=== PATIENT | female | born 1970 | race American Indian/Alaskan Native ===

== ENCOUNTER 2016-08-24 23:23 | Emergency (ER) | payer BC, MEDICAID, OTHER ==
[2016-08-24 23:31] VITALS: BP 155/95; TEMP 98.3
--- NOTE | 2016-08-24 23:59 | C.PDOC ---
History Of Present Illness Patient presents to the ER with a complaint of general body pain and joint pain. Patient took OTC medications but states had no relief. Patient has a history of diabetic neuropathy. Denies any nausea, vomiting, or diarrhea. Time Seen by Provider: 08/24/16 23:59 Chief Complaint (Nursing): Pain, Chronic History Per: Patient History/Exam Limitations: no limitations Current Symptoms Are (Timing): Still Present Past Medical History Reviewed: Historical Data, Nursing Documentation, Vital Signs Vital Signs: Last Vital Signs Temp 98.3 F 08/24/16 23:25 Pulse 89 08/24/16 23:25 Resp 16 08/24/16 23:25 BP 155/95 H 08/24/16 23:25 Pulse Ox 99 08/25/16 01:21 - Medical History PMH: Arthritis, HTN, Osteoporosis Surgical History: Cholecystectomy Family History: States: No Known Family Hx - Social History Hx Alcohol Use: No Hx Substance Use: No - Immunization History Hx Tetanus Toxoid Vaccination: No Hx Influenza Vaccination: No Hx Pneumococcal Vaccination: No Review Of Systems Constitutional: Negative for: Fever, Chills Gastrointestinal: Negative for: Nausea, Vomiting Musculoskeletal: Positive for: Other (General body and joint pain) Physical Exam - Physical Exam Appears: Well, Non-toxic Skin: Warm, Dry Oral Mucosa: Moist Chest: Symmetrical Cardiovascular: Rhythm Regular, No Murmur Respiratory: No Rales, No Rhonchi, No Wheezing Gastrointestinal/Abdominal: Soft, No Tenderness Neurological/Psych: Oriented x3 Additional Physical Exam Comments: Patient diffusely tender. ED Course And Treatment O2 Sat by Pulse Oximetry: 99 (Room air) Pulse Ox Interpretation: Normal Progress Note: Solu-medrol IV, IV fluids, and Toradol IVP administered. Reevaluation Time: 01:46 Reassessment Condition: Improved Medical Decision Making Medical Decision Making: Upon provider reevaluation patient is feeling better, is medically stable, and requires no further treatment in the ED at this time. Patient will be discharged home with Rx for tramadol. Counseling was provided and all questions were answered regarding diagnosis and need for follow up with Dr. Serrano. There is agreement to discharge plan. Return if symptoms persist or worsen. Disposition Counseled Patient/Family Regarding: Studies Performed, Diagnosis, Need For Followup, Rx Given - Disposition Referrals: Souleymane Serrano MD [Staff Provider] - Disposition: HOME/ ROUTINE Disposition Time: 23:59 Condition: FAIR Prescriptions: traMADol [Ultram] 50 mg PO TID #15 tab Instructions: Chronic Pain (DC) - Clinical Impression Clinical Impression: Chronic pain - Scribe Statement The provider has reviewed the documentation as recorded by the Scribmaryellen Darling All medical record entries made by the Scribe were at my direction and personally dictated by me. I have reviewed the chart and agree that the record accurately reflects my personal performance of the history, physical exam, medical decision making, and the department course for this patient. I have also personally directed, reviewed, and agree with the discharge instructions and disposition.
[2016-08-25] MEDS ORDERED: Sodium Chloride 0.9% 1,000 ML IV ONE (00:09)
[2016-08-25] MEDS ORDERED: Sodium Chloride 0.9% 1,000 ML ONE (00:14)
[2016-08-25] MEDS ORDERED: Morphine 4 MG/ML VIAL ONE (00:59)
[2016-08-25 02:22] VITALS: PULSE 71; RESP 17; O2SAT 100
== END 2016-08-25 02:31 | disposition home or self-care (01) ==
LOC: C.ER 23:23
DX: G89.29 Other chronic pain (principal)
CPT/HCPCS: 96361; 96374; 96375; 99284; J1885; J2270; J2930; J7040

== ENCOUNTER 2016-10-04 19:03 | Emergency (ER) | payer BC, MEDICAID, OTHER ==
[2016-10-04 19:21] VITALS: PULSE 87; TEMP 98; O2SAT 98
--- NOTE | 2016-10-04 20:09 | C.PDOC ---
History Of Present Illness 45 year old patient, with a past medical history of Arthritis, HTN, Osteoporosis , diabetes, gout, and neuropathy, presents to the ED complaining of body aches and knee pain. Patient states she was taking Gabapentin till the end of August for her neuropathy and knee pain. Her knee pain is secondary to tears in meniscus. Patient notes the Gabapentin was helping, but her new PMD stopped prescribing it, and she was then started on Lyrica, which gives no improvement of pain. She reports the pain is getting worse. Patient tried Tramadol, Ibuprofen, and Tylenol with codeine with no relief. Patient denies fever or chills. 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 Patient's old PMD , Dr. Souleymane Serrano, advised her to visit the ED and call him for more information after arrival. Time Seen by Provider: 10/04/16 19:35 Chief Complaint (Nursing): Pain, Chronic History Per: Patient History/Exam Limitations: no limitations Onset/Duration Of Symptoms: Worse Since (today) Current Symptoms Are (Timing): Still Present Severity: Moderate Pain Scale Rating Of: 4 Reports Recently: Treated By A Physician Recent travel outside of the [place]: No Past Medical History Reviewed: Historical Data, Nursing Documentation, Vital Signs Vital Signs: Last Vital Signs Temp 98 F 10/04/16 19:18 Pulse 87 10/04/16 19:18 Resp 20 10/04/16 22:10 BP 112/70 10/04/16 22:10 Pulse Ox 98 10/04/16 21:38 - Medical History PMH: Arthritis, HTN, Osteoporosis Surgical History: Cholecystectomy Family History: States: Unknown Family Hx - Social History Hx Tobacco Use: No Hx Alcohol Use: No Hx Substance Use: No - Immunization History Hx Tetanus Toxoid Vaccination: No Hx Influenza Vaccination: No Hx Pneumococcal Vaccination: No Review Of Systems Except As Marked, All Systems Reviewed And Found Negative. Constitutional: Positive for: Other (body aches). Negative for: Fever, Chills Cardiovascular: Negative for: Chest Pain, Palpitations Respiratory: Negative for: Cough, Shortness of Breath Gastrointestinal: Negative for: Vomiting, Abdominal Pain Musculoskeletal: Positive for: Other (knee pain) Neurological: Negative for: Weakness, Numbness Physical Exam - Physical Exam Appears: Non-toxic, No Acute Distress Skin: Warm, Dry Head: Atraumatic, Normacephalic Neck: Normal ROM, No Midline Cervical Tenderness, Supple Chest: Symmetrical, No Tenderness Cardiovascular: Rhythm Regular, No Murmur Respiratory: Normal Breath Sounds, No Rales, No Rhonchi, No Wheezing Gastrointestinal/Abdominal: Soft, No Tenderness Back: Normal Inspection Extremity: Normal ROM, Tenderness (right knee and anterior left ankle), No Calf Tenderness, Other (right knee: mild swelling and tenderness, normal distal pulse , normal strength and sensation, flexion with pain; left ankle: swelling to the anterior dorsal aspect, normal distal pulse, <2 seconds capillary refill, normal strength and sensation) Neurological/Psych: Oriented x3, Normal Speech, Normal Motor, Normal Sensation Gait: Steady ED Course And Treatment - Laboratory Results Result Diagrams: 10/04/16 20:22 10/04/16 20:22 O2 Sat by Pulse Oximetry: 98 (room air) Pulse Ox Interpretation: Normal Progress Note: Plan: Labs Medical Decision Making Medical Decision Making: pt also reports urinary difficulties for last 4 months, trouble fully emptying bladder, frequency (pt on 2 diuretics), no dysuria, urgency or hematuria. no abdominal pain. will not treat for uti; culture sent. Disposition Counseled Patient/Family Regarding: Studies Performed, Diagnosis, Need For Followup - Disposition Referrals: [facility] [Outside] Souleymane Serrano MD [Staff Provider] - Disposition: HOME/ ROUTINE Disposition Time: 21:21 Condition: GOOD Additional Instructions: Follow up with Strategic Advisor and your pmd this week. Recommend pain management appointment; call [facility] to help find a doctor. Also recommend follow up with urologist. Return to ER for any worsening symptoms. 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 - Scribe Statement The provider has reviewed the documentation as recorded by the Scribe Ileaan Spencer All medical record entries made by the Scribe were at my direction and personally dictated by me. I have reviewed the chart and agree that the record accurately reflects my personal performance of the history, physical exam, medical decision making, and the department course for this patient. I have also personally directed, reviewed, and agree with the discharge instructions and disposition.
[2016-10-04 20:27] LABS: BASO # 0.1 K/uL (0.0-0.2); BASO % 0.9 % (0.0-2.0); EOS % 0.3 % (0.0-4.0); HEMATOCRIT 36.2 % (34.0-47.0); LYMPH # 1.3 K/uL (1.0-4.3); LYMPH % 12.6 % (20.0-40.0); MEAN CELL VOLUME 84.1 fL (81.0-99.0); MEAN CORPUSCULAR HEMOGLOBIN 27.3 pg (27.0-31.0); MEAN CORPUSCULAR HGB CONC 32.5 g/dL (33.0-37.0); MEAN PLATELET VOLUME 11.7 fL (7.2-11.7); MONO # 0.7 K/uL (0.0-0.8); MONO % 6.7 % (0.0-10.0); RED CELL DISTRIBUTION WIDTH 15.6 % (11.5-14.5); WHITE BLOOD COUNT 10.4 K/uL (4.8-10.8)
[2016-10-04 20:35] LABS: CHLORIDE 101 mmol/L (98-107); POTASSIUM 3.9 mmol/L (3.6-5.2); SODIUM 140 mmol/L (132-148)
[2016-10-04 20:37] LABS: ALB/GLOB RATIO 1.6 (1.0-2.1); ALKALINE PHOSPHATASE 49 U/L (38-126); AST/SGOT 32 U/L (14-36); BILIRUBIN,TOTAL 0.4 mg/dL (0.2-1.3); CARBON DIOXIDE 27 mmol/L (22-30); GFR AFRICAN-AMERICAN > 60; TOTAL PROTEIN 7.4 g/dL (6.3-8.3)
[2016-10-04 20:38] LABS: ALT/SGPT 41 U/L (9-52); BLOOD UREA NITROGEN 12 mg/dL (7-17); CALCIUM 10.4 mg/dl (8.6-10.4); GLUCOSE,RANDOM 105 mg/dL (65-105)
[2016-10-04] MEDS ORDERED: Oxycodone/Acetaminophen 5/325 mg Tab PO STA (20:58)
[2016-10-04 21:01] LABS: URINE BILIRUBIN NEGATIVE (NEGATIVE); URINE BLOOD NEGATIVE (NEGATIVE); URINE COLOR Yellow (YELLOW); URINE GLUCOSE (UA) NORMAL (Normal); URINE KETONE TRACE mg/dL (NEGATIVE); URINE LEUKOCYTE ESTERASE TRACE Leu/uL (Negative); URINE PROTEIN 1+ mg/dL (NEGATIVE); URINE UROBILINOGEN NORMAL mg/dL (0.2-1.0); WBC URINE 7 /hpf (0-5)
[2016-10-04] MEDS ORDERED: Oxycodone/Acetaminophen 5/325 mg Tab ONE (21:02)
[2016-10-04 22:10] VITALS: BP 112/70; RESP 20
== END 2016-10-04 22:10 | disposition home or self-care (01) ==
LOC: C.ER 19:03
DX: G89.29 Other chronic pain (principal); I10 Essential (primary) hypertension; M81.0 Age-related osteoporosis without current pathological fracture; M19.90 Unspecified osteoarthritis, unspecified site

== ENCOUNTER 2016-12-12 09:03 | Day surgery (SDC) | payer OTHER ==
[2016-12-12 09:49] VITALS: O2SAT 100; BMI 35.5
[2016-12-12] MEDS ORDERED: Propofol 10 mg/ml Inj (20 ML) ONE (11:01)
[2016-12-12] MEDS ORDERED: Simethicone 40 mg/0.6 ml Liquid (30 ml) ONE (11:03)
[2016-12-12 11:43] VITALS: TEMP 97.8
[2016-12-12 13:16] VITALS: BP 127/7; PULSE 72; RESP 14
== END 2016-12-12 13:05 | disposition home or self-care (01) ==
LOC: C.ENDO 09:03
PROVIDERS: ATTEND Internal Medicine
DX: K29.50 Unspecified chronic gastritis without bleeding (principal); D64.9 Anemia, unspecified; K44.9 Diaphragmatic hernia without obstruction or gangrene; K64.8 Other hemorrhoids
CPT/HCPCS: 43239; 45378; 82948; 84703; 88305; 88313; 88342; J2704

== ENCOUNTER 2017-05-24 13:50 | Emergency (ER) | payer OTHER ==
[2017-05-24 13:59] VITALS: BMI 38.2
[2017-05-24 14:02] VITALS: BP 142/80; PULSE 72; RESP 18; TEMP 98.6; O2SAT 98
--- NOTE | 2017-05-24 14:30 | C.PDOC ---
History Of Present Illness 46 y/o female presents to the ER complaining of chronic body aches, headache, and peripheral neuropathy. Patient reports that she also has alternating burning sensation and paresthesia which is greater in the left toes compared to the right toes. Patient reports that she has taken Gabapentin and she has been taking Lyrica for the past 2 months. Time Seen by Provider: 05/24/17 14:13 Chief Complaint (Nursing): Headache History Per: Patient History/Exam Limitations: no limitations Onset/Duration Of Symptoms: Hrs Current Symptoms Are (Timing): Still Present Severity: Moderate Past Medical History Reviewed: Historical Data, Nursing Documentation, Vital Signs Vital Signs: Last Vital Signs Temp 98.6 F 05/24/17 13:59 Pulse 72 05/24/17 13:59 Resp 18 05/24/17 13:59 BP 142/80 05/24/17 13:59 Pulse Ox 98 05/24/17 16:09 - Medical History PMH: Anemia, Arthritis, HTN, Kidney Stones, Osteoporosis, Chronic Kidney Disease Surgical History: No Surg Hx Family History: States: No Known Family Hx - Social History Hx Tobacco Use: No Hx Alcohol Use: No Hx Substance Use: No - Immunization History Hx Tetanus Toxoid Vaccination: No Hx Influenza Vaccination: No Hx Pneumococcal Vaccination: No Review Of Systems Except As Marked, All Systems Reviewed And Found Negative. Constitutional: Positive for: Malaise Neurological: Positive for: Headache Physical Exam - Physical Exam Appears: Non-toxic, Other (obese black female, no apparent distress) Skin: Normal Color, Warm, No Rash (toes) Head: Atraumatic, Normacephalic Eye(s): bilateral: Normal Inspection, PERRL Nose: Normal Oral Mucosa: Moist Neck: Supple Chest: Symmetrical Cardiovascular: Rhythm Regular Respiratory: Normal Breath Sounds, No Accessory Muscle Use Extremity: Normal ROM, No Tenderness, No Deformity, No Swelling, Other ( toes look normal) Neurological/Psych: Oriented x3, Normal Speech, Normal Cognition, Normal Motor, Normal Sensation (toes) ED Course And Treatment O2 Sat by Pulse Oximetry: 98 (RA) Pulse Ox Interpretation: Normal Progress Note: Patient given Motrin. Medical Decision Making Medical Decision Making: myriad of pain complaints c/w chronic pain syndromes previously diagnosed Already follows Neurology No new Neuro issues today mild L>R distal foot peripheral neuropathy with alternating parasthesias/ burning sensations. NOrmal distal pulses. Neuro follow-up encouraged. Disposition Doctor Will See Patient In The: Office Counseled Patient/Family Regarding: Studies Performed, Diagnosis - Disposition Referrals: Andrade Saavedra MD [Medical Doctor] - Disposition: HOME/ ROUTINE Disposition Time: 15:20 Condition: GOOD Additional Instructions: continue your normal chronic pain medication routine. Tylenol or motrin as needed in addition Follow-up with your PMD or Neurologist for futher eval as needed. Instructions: Chronic Pain (ED), Peripheral Neuropathy (ED), Paresthesia (ED) Forms: [employer] (Amharic) - Clinical Impression Clinical Impression: Peripheral neuropathic pain, Chronic pain - Scribe Statement The provider has reviewed the documentation as recorded by the Aylin Garcia Provider Attestation: All medical record entries made by the Aylin were at my direction and personally dictated by me. I have reviewed the chart and agree that the record accurately reflects my personal performance of the history, physical exam, medical decision making, and the department course for this patient. I have also personally directed, reviewed, and agree with the discharge instructions and disposition.
== END 2017-05-24 15:28 | disposition home or self-care (01) ==
LOC: C.ER 13:50
DX: G62.9 Polyneuropathy, unspecified (principal)

== ENCOUNTER 2017-08-17 17:34 | Emergency (ER) | payer OTHER ==
[2017-08-17 17:35] VITALS: BMI 38.2
[2017-08-17 18:49] VITALS: O2SAT 98
[2017-08-17 19:16] LABS: BASO # 0.1 K/uL (0.0-0.2); BASO % 1.2 % (0.0-2.0); EOS # 0.1 K/uL (0.0-0.7); EOS % 0.9 % (0.0-4.0); HEMOGLOBIN 12.6 g/dL (11.0-16.0); LYMPH # 1.6 K/uL (1.0-4.3); MEAN CELL VOLUME 87.7 fL (81.0-99.0); MEAN CORPUSCULAR HEMOGLOBIN 30.2 pg (27.0-31.0); MEAN CORPUSCULAR HGB CONC 34.5 g/dL (33.0-37.0); MEAN PLATELET VOLUME 11.6 fL (7.2-11.7); MONO # 0.7 K/uL (0.0-0.8); MONO % 6.8 % (0.0-10.0); NEUT % 76.1 % (50.0-75.0); RBC 4.17 Mil/uL (3.80-5.20); RED CELL DISTRIBUTION WIDTH 14.9 % (11.5-14.5); WHITE BLOOD COUNT 10.5 K/uL (4.8-10.8)
[2017-08-17 19:33] LABS: ALB/GLOB RATIO 1.4 (1.0-2.1); ALBUMIN 4.1 g/dL (3.5-5.0); ALT/SGPT 55 U/L (9-52); AST/SGOT 42 U/L (14-36); BLOOD UREA NITROGEN 8 mg/dL (7-17); CALCIUM 10.3 mg/dl (8.6-10.4); GFR AFRICAN-AMERICAN > 60; GFR NON-AFRICAN AMERICAN > 60
[2017-08-17 20:14] VITALS: RESP 16
--- NOTE | 2017-08-17 21:02 | CT ---
EXAM: CT Head Without Intravenous Contrast EXAM DATE/TIME: Exam ordered 08/17/2017 6:55 PM CLINICAL HISTORY: 46 years old, female; Pain; Headache; Headache not specified; Additional info: Headaches TECHNIQUE: Axial computed tomography images of the head/brain without intravenous contrast. All CT scans at this facility use one or more dose reduction techniques, viz.: automated exposure control; ma/kV adjustment per patient size (including targeted exams where dose is matched to indication; i.e. head); or iterative reconstruction technique. Coronal and sagittal reformatted images were created and reviewed. COMPARISON: No relevant prior studies available. FINDINGS: Brain: Unremarkable. No hemorrhage. No significant white matter disease. No edema. Ventricles: Unremarkable. No ventriculomegaly. Bones/joints: Unremarkable. No acute fracture. Soft tissues: Unremarkable. Sinuses: Unremarkable as visualized. No acute sinusitis. Mastoid air cells: Unremarkable as visualized. No mastoid effusion. IMPRESSION: Normal head/brain CT.
--- NOTE | 2017-08-17 21:40 | C.PDOC ---
Time Seen by Provider: 08/17/17 18:29 Chief Complaint (Nursing): Headache History Per: Patient Onset/Duration Of Symptoms: Days, Waxing/Waning Current Symptoms Are (Timing): Still Present Severity: Moderate Quality: "Pain" Associated Symptoms: denies: Photophobia, Blurred Vision, Extremity Weakness Additional History Per: Prior Records Past Medical History Reviewed: Historical Data, Nursing Documentation, Vital Signs Vital Signs: Last Vital Signs Temp 98.5 F 08/17/17 17:44 Pulse 67 08/17/17 18:48 Resp 16 08/17/17 20:13 BP 164/82 H 08/17/17 20:13 Pulse Ox 98 08/17/17 18:48 - Medical History PMH: Anemia, Arthritis, Fibromyalgia, HTN, Kidney Stones, Osteoporosis, Chronic Kidney Disease Surgical History: Family History: States: Unknown Family Hx - Social History Hx Tobacco Use: No Hx Alcohol Use: No Hx Substance Use: No - Immunization History Hx Tetanus Toxoid Vaccination: No Hx Influenza Vaccination: No Hx Pneumococcal Vaccination: No Review Of Systems Except As Marked, All Systems Reviewed And Found Negative. Constitutional: Negative for: Fever ENT: Positive for: Nose Congestion. Negative for: Ear Discharge, Throat Pain Cardiovascular: Negative for: Chest Pain Respiratory: Negative for: Cough, Shortness of Breath Gastrointestinal: Negative for: Vomiting, Abdominal Pain Musculoskeletal: Negative for: Neck Pain Skin: Negative for: Rash Neurological: Positive for: Headache. Negative for: Weakness, Numbness, Incoordination, Change in Speech, Confusion, Seizures, Altered Mental Status Physical Exam - Physical Exam Appears: Non-toxic, No Acute Distress Skin: Normal Color, Warm, Dry, No Rash Head: Atraumatic, Normacephalic Eye(s): bilateral: Normal Inspection, PERRL, EOMI Neck: Normal ROM, Supple Lymphatic: No Adenopathy Cardiovascular: Rhythm Regular Respiratory: Normal Breath Sounds, No Accessory Muscle Use Gastrointestinal/Abdominal: Soft, No Tenderness Extremity: Normal ROM Neurological/Psych: Oriented x3, Normal Speech, Normal Cognition, Normal Motor, Normal Sensation ED Course And Treatment - Laboratory Results Result Diagrams: 08/17/17 19:12 08/17/17 19:12 Lab Interpretation: No Acute Changes O2 Sat by Pulse Oximetry: 98 Pulse Ox Interpretation: Normal - CT Scan/US CT head Other Rad Studies (CT/US): Read By Radiologist, Radiology Report Reviewed CT/US Interpretation: IMPRESSION: Normal head/brain CT. Disposition Counseled Patient/Family Regarding: Studies Performed, Diagnosis, Need For Followup, Rx Given - Disposition Referrals: Andrade Saavedra MD [Medical Doctor] - Disposition: HOME/ ROUTINE Disposition Time: 21:41 Condition: IMPROVED Additional Instructions: Follow up with your doctor for further evaluation and treatment. Return to the ER if you develop fever, vomiting, worsening of symptoms or if you have any other concerns. Prescriptions: Loratadine [Claritin] 10 mg PO DAILY #30 tab Oxymetazoline 0.05% [Oxymetazoline HCl 30 Ml] 2 sprays NS BID #1 bottle Instructions: Headache, Adult (DC) Forms: [employer] (Welsh) - Clinical Impression Clinical Impression: Headache
[2017-08-17 21:53] VITALS: BP 156/90; PULSE 65; TEMP 98.9
== END 2017-08-17 21:59 | disposition home or self-care (01) ==
LOC: C.ER 17:34
DX: R51 Headache (principal)

== ENCOUNTER 2018-03-25 17:53 | Emergency (ER) | payer OTHER ==
[2018-03-25 17:54] VITALS: BMI 38.2
[2018-03-25 18:13] VITALS: O2SAT 100
[2018-03-25] MEDS ORDERED: Sodium Chloride 0.9% 1,000 ML IV ONE (19:43)
--- NOTE | 2018-03-25 19:44 | C.PDOC ---
History Of Present Illness 47 year old female presents to the ED complaining of body aches for the past few weeks but worse for the last week. Reports she takes Lyrica for achiness but had to stop because of insurance problems. Denies any fever, chills, or any other complaints. Chief Complaint (Nursing): Pain, Chronic History Per: Patient Onset/Duration Of Symptoms: Worse Since (last week), Other (past few weeks) Current Symptoms Are (Timing): Still Present Past Medical History Reviewed: Historical Data, Nursing Documentation, Vital Signs Vital Signs: Last Vital Signs Temp 99.1 F 03/25/18 18:09 Pulse 81 03/25/18 18:09 Resp 18 03/25/18 18:09 BP 135/88 03/25/18 18:09 Pulse Ox 100 03/25/18 18:09 - Medical History PMH: Anemia, Arthritis, Fibromyalgia, HTN, Kidney Stones, Osteoporosis, Chronic Kidney Disease Surgical History: Family History: States: No Known Family Hx - Social History Hx Tobacco Use: No Hx Alcohol Use: No Hx Substance Use: No - Immunization History Hx Tetanus Toxoid Vaccination: No Hx Influenza Vaccination: No Hx Pneumococcal Vaccination: No Review Of Systems Except As Marked, All Systems Reviewed And Found Negative. Constitutional: Positive for: Weakness, Other (generalized body aches). Negative for: Fever, Chills Physical Exam - Physical Exam Appears: Non-toxic, Other (mild distress due to pain ) Skin: Warm, Dry, No Rash Head: Normacephalic Eye(s): bilateral: Normal Inspection Neck: Normal ROM, Supple Chest: Symmetrical Cardiovascular: Rhythm Regular Respiratory: Normal Breath Sounds, No Rales, No Rhonchi, No Wheezing Gastrointestinal/Abdominal: Soft, No Tenderness Extremity: Normal ROM Extremity: Bilateral: Atraumatic, Normal Color And Temperature, Normal ROM Neurological/Psych: Oriented x3, Normal Speech, Normal Motor, Normal Sensation, Normal Reflexes, No Other (focal deficits) Gait: Steady ED Course And Treatment - Laboratory Results Result Diagrams: 03/25/18 19:57 03/25/18 19:57 O2 Sat by Pulse Oximetry: 100 (RA) Pulse Ox Interpretation: Normal Medical Decision Making Medical Decision Making: Plan - Toradol 30mg IVP - Lyrica 25mg PO - IV fluids - UA - Bloodwork Disposition Counseled Patient/Family Regarding: Diagnosis - Disposition Referrals: Andrade Saavedra MD [Medical Doctor] - [facility] [Outside] Disposition: HOME/ ROUTINE Disposition Time: 23:08 Condition: STABLE Prescriptions: Ciprofloxacin [Cipro] 1 tab PO BID #14 tab Potassium Chloride 20 meq PO DAILY #10 tab.er.prt Pregabalin [Lyrica] 25 mg PO BID #14 cap Instructions: Urinary Tract Infections in Adults, Fibromyalgia (DC) Forms: [employer] (Kiswahili) - POA Present On Arrival: None - Clinical Impression Clinical Impression: Fibromyalgia, Hypokalemia, UTI (urinary tract infection) - Scribe Statement The provider has reviewed the documentation as recorded by the Scribe Emily Hazel All medical record entries made by the Scribe were at my direction and personally dictated by me. I have reviewed the chart and agree that the record accurately reflects my personal performance of the history, physical exam, medical decision making, and the department course for this patient. I have also personally directed, reviewed, and agree with the discharge instructions and disposition.
[2018-03-25 20:00] LABS: BASO # 0.1 K/uL (0.0-0.2); EOS # 0.1 K/uL (0.0-0.7); EOS % 1.3 % (0.0-4.0); LYMPH # 1.6 K/uL (1.0-4.3); LYMPH % 15.8 % (20.0-40.0); MEAN CORPUSCULAR HEMOGLOBIN 29.7 pg (27.0-31.0); MEAN CORPUSCULAR HGB CONC 33.3 g/dL (33.0-37.0); MONO # 0.7 K/uL (0.0-0.8); MONO % 6.8 % (0.0-10.0); NEUT # 7.6 K/uL (1.8-7.0); NEUT % 75.1 % (50.0-75.0); RBC 4.39 Mil/uL (3.80-5.20); RED CELL DISTRIBUTION WIDTH 15.3 % (11.5-14.5); WHITE BLOOD COUNT 10.1 K/uL (4.8-10.8)
[2018-03-25] MEDS ORDERED: Sodium Chloride 0.9% 1,000 ML ONE (20:01)
[2018-03-25 20:13] LABS: ALB/GLOB RATIO 1.5 (1.0-2.1); ALBUMIN 4.9 g/dL (3.5-5.0); CALCIUM 10.9 mg/dl (8.6-10.4)
[2018-03-25] MEDS ORDERED: Potassium Chloride 20 mEq/15 ml LIQ UD PO STA (21:30)
[2018-03-25 22:01] LABS: SQUAMOUS EPITHIAL 10 /hpf (0-5); URINE BACTERIA FEW (<OCC); URINE BILIRUBIN NEGATIVE (NEGATIVE); URINE CLARITY Hazy (Clear); URINE COLOR Yellow (YELLOW); URINE GLUCOSE (UA) NORMAL (Normal); URINE LEUKOCYTE ESTERASE TRACE Leu/uL (Negative); URINE PROTEIN NEGATIVE (NEGATIVE); URINE UROBILINOGEN NORMAL mg/dL (0.2-1.0)
[2018-03-25 22:02] LABS: URINE BLOOD 1+ (NEGATIVE)
[2018-03-25] MEDS ORDERED: Potassium Chloride 10 mEq ER Tab PO ONE (22:33)
[2018-03-26 00:01] VITALS: BP 137/86; PULSE 80; RESP 14; TEMP 98.1
== END 2018-03-26 00:03 | disposition home or self-care (01) ==
LOC: C.ER 17:53
DX: M79.7 Fibromyalgia (principal); E87.6 Hypokalemia; N39.0 Urinary tract infection, site not specified
CPT/HCPCS: 80053; 81001; 82550; 83874; 85025; 96361; 96374; 99285; J1885; J7030

== ENCOUNTER 2018-05-23 08:46 | Outpatient (CLI) | payer OTHER | END 2018-05-23 08:47 | disposition home or self-care (01) | LOC: C.CARD 08:46 | DX: R06.02 Shortness of breath (principal); E11.9 Type 2 diabetes mellitus without complications ==